=== PATIENT | female | born 1995 | race Caucasian/White ===

== ENCOUNTER 2021-07-29 11:46 | Outpatient (REF) | payer SELFPAY ==
--- NOTE | 2021-07-29 14:01 | MHC.AU.HFU ---
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 The music group is paying for the monitors and patient will be sending the impressions to the [employer] senior officer. Took impressions of both ears using the blue material without complication and gave the impressions to the patient. Recommendations: Recommendations (Other): If impressions do not meet the standards for the [employer] senior officer, patient will schedule another appointment, no charge, for remake. Diagnosis Code(s): Primary Diagnosis: H93.293 Abnormal Auditory Perception Services Performed: Ear Impression (Quantity): 2 Signature: Provider: Caryn Slaughter, CCC-A
== END 2021-07-29 11:47 | disposition home or self-care (01) ==
LOC: HO.HAP 11:46
PROVIDERS: Visit Provider Family Medicine
DX: H93.293 Other abnormal auditory perceptions, bilateral (principal)
CPT/HCPCS: 92700

== ENCOUNTER 2021-09-14 14:00 | Outpatient (REF) | payer SELFPAY ==
--- NOTE | 2021-09-14 14:36 | MHC.AU.HFU ---
Hearing Instrument Follow-Up- Binaural Date of Visit: 09/14/21 [employer] Used: Not Applicable Follow-Up Summary: The cymba portion of both impressions made at last visit are not defined enough. Took impressions of both ears with the pink material today without complication. Diagnosis Code(s): Primary Diagnosis: H93.293 Abnormal Auditory Perception Services Performed: PETERS Non-Quantity Charges: HANC: NonBillable Event Signature: Provider: Kajal Slaughter, LAURA-A
== END 2021-09-14 14:01 | disposition home or self-care (01) ==
LOC: HO.HAP 14:00
PROVIDERS: Visit Provider Family Medicine
DX: Z13.89 Encounter for screening for other disorder (principal)